=== PATIENT | female | born 1980 | race Caucasian/White ===

== ENCOUNTER 2023-06-20 21:02 | Emergency (ER) | payer OTHER ==
[~2023-06-20] VITALS: Ht 162.6 cm; Wt 127.0 kg
[2023-06-20] MEDS: IPRATROPIUM/ALBUTEROL SULFATE 3 ML AMPUL.NEB (DUONEB) INH ONE (21:17)
[2023-06-20 21:30] VITALS: BP_SYST 146; PULSE 79; RESP 16; TEMP 98.4; O2SAT 97
[2023-06-20 21:44] LABS: BILIRUBIN,URINE NEGATIVE (NEGATIVE); BLOOD, URINE NEGATIVE (NEGATIVE); COLOR,URINE YELLOW (YELLOW); GLUCOSE,URINE NEGATIVE (NEGATIVE); KETONES,URINE NEGATIVE (NEGATIVE); LEUKOCYTE ESTERASE ,URINE NEGATIVE (NEGATIVE); NITRITE, URINE NEGATIVE (NEGATIVE); PROTEIN URINE NEGATIVE (NEGATIVE); UROBILINOGEN,URINE 0.2 (0.2-1.0)
[2023-06-20 21:47] LABS: CLARITY/URINE SLIGHTLY HAZY (CLEAR)
[2023-06-20 21:54] LABS: BASOPHILS # (AUTO) 0.1 K/uL (0.0-0.2); BASOPHILS % (AUTO) 0.5 % (0.0-2.0); EOSINOPHILS # (AUTO) 0.1 K/uL (0.0-0.4); EOSINOPHILS % (AUTO) 0.6 % (0.0-4.0); HEMATOCRIT 43.4 % (36-48); HEMOGLOBIN 14.4 g/dL (12.0-16.0); LYMPHOCYTES # (AUTO) 3.8 K/uL (1.0-5.5); LYMPHOCYTES % (AUTO) 22.4 % (20.5-51.5); MEAN CORPUSCULAR HEMOGLOBIN 27 pg (27-31); MEAN CORPUSCULAR HGB CONC 33 % (32-36); MEAN CORPUSCULAR VOLUME 80 fL (79.0-98.0); MONOCYTES # (AUTO) 0.8 K/uL (0.0-1.0); MONOCYTES % (AUTO) 4.6 % (1.7-9.3); NEUTROPHILS # (AUTO) 12.3 K/uL (1.8-7.7); NEUTROPHILS % (AUTO) 71.9 % (40.0-70.0); PLATELET COUNT (AUTO) 307 K/uL (130-430); RED BLOOD CELL COUNT(AUTO) 5.41 MIL/uL (4.2-6.2); RED CELL DISTRIBUTION WIDTH 16.3 % (9.0-15.0); WHITE BLOOD COUNT (AUTO) 17.1 K/uL (4.8-10.8)
[2023-06-20] MEDS: ACETAMINOPHEN 500 MG TABLET PO ONE (22:14)
[2023-06-20 22:24] LABS: ANION GAP 10 (5-15); CALCIUM 8.8 mg/dL (8.4-11.0); CARBON DIOXIDE 24 mmol/L (23-29); CHLORIDE 103 mmol/L (98-107); CREATININE 0.75 mg/dL (0.55-1.30); GFR AFRICAN AMERICAN 110 mL/min (>90); GFR NON AFRICAN-AMERICAN 91 mL/min (>90); GLUCOSE 97 mg/dL (74-106); POTASSIUM 4.2 mmol/L (3.5-5.1); SODIUM SERUM 137 mmol/L (136-145); THYROID STIMULATING HORMONE 1.35 uIu/mL (0.36-3.74); UREA NITROGEN, BLOOD 17 mg/dL (8-21)
[2023-06-20] MEDS ORDERED: ALBU4TAB4 PO (23:06)
[2023-06-20] MEDS ORDERED: BENZ100C92 PO (23:06)
[2023-06-20] MEDS ORDERED: LEVO750T64 PO (23:06)
[2023-06-20 23:16] VITALS: BP_SYST 144; PULSE 99; RESP 20; TEMP 98.4; O2SAT 96
== END 2023-06-20 23:12 | disposition home or self-care (01) ==
LOC: SED 21:02
DX: J18.9 Pneumonia, unspecified organism (principal); R05.9 Cough, unspecified; R53.1 Weakness; R53.83 Other fatigue; J45.909 Unspecified asthma, uncomplicated; Z79.899 Other long term (current) drug therapy
CPT/HCPCS: 36415; 71045; 80048; 81001; 81003; 81025; 83880; 84443; 84484; 85025; 93005; 99285

== ENCOUNTER 2023-07-01 02:10 | Outpatient (CLI) | payer OTHER ==
[~2023-07-01 02:10] MED LIST: ALBU4TAB4 PO; BENZ100C92 PO; LEVO750T64 PO
== END 2023-07-01 19:33 | disposition home or self-care (01) ==
LOC: SRD 02:10
PROVIDERS: ATTEND Internal Medicine
DX: J18.9 Pneumonia, unspecified organism (principal)
CPT/HCPCS: 71046